=== PATIENT | female | born 1975 | race Caucasian/White ===

== ENCOUNTER 2020-11-21 17:38 | Emergency (ER) | payer OTHER ==
[~2020-11-21] VITALS: Ht 172.7 cm; Wt 93.0 kg
[2020-11-21] MEDS ORDERED: ONDANSETRON HCL 4MG/2ML INJ IV STA (18:59)
[2020-11-21] MEDS ORDERED: MORPHINE SULFATE 4 MG/ML CPJ (NOT FOR IM USE) IV STA (18:59)
[2020-11-21] MEDS ORDERED: SODIUM CHLORIDE 0.9% 1,000 ML IV ONE (19:00)
[2020-11-21 19:06] LABS: BASOPHILS % 0.6 % (0.0-2.0); EOSINOPHILS % 0.9 % (0.0-5.0); HEMATOCRIT. 28.1 % (36.0-48.0); HEMOGLOBIN. 8.1 g/dL (12.0-16.0); LYMPHOCYTES % 22.5 % (20.0-50.0); MEAN CORPUSCULAR VOLUME 58.6 fL (81.0-99.0); MEAN PLATELET VOLUME 8.6 fl (7.4-10.4); MONOCYTES % 3.6 % (2.0-8.0); NEUTROPHILS % 72.4 % (40.0-76.0); PLATELET 461 x1000/uL (130-400); RED BLOOD CELL COUNT 4.79 mill/uL (4.2-5.4); RED CELL DISTRIBUTION WIDTH 18.9 % (11.6-14.6)
[2020-11-21 19:13] LABS: CHLORIDE 108 mEq/L (98-107)
[2020-11-21 19:15] LABS: HCG SCREEN NEGATIVE; PROTHROMBIN TIME 10.8 sec (9.6-11.0)
[2020-11-21 19:31] LABS: PLATELET ESTIMATE INCREASED
[2020-11-21] MEDS ORDERED: DEXT 5%/0.9% NACL 500 ML IV ONE ×2 (20:30→23:30)
[2020-11-21] MEDS ORDERED: FENTANYL CITRATE/PF 50MCG/ML 2ML VIAL IV ONE (20:30)
[2020-11-21] MEDS ORDERED: CEFAZOLIN 1000MG PREMIX 50 ML IV ONE (22:30)
[2020-11-21] MEDS ORDERED: MORPHINE SULFATE 4 MG/ML CPJ (NOT FOR IM USE) IV ONE (23:30)
[2020-11-22 01:53] VITALS: BP 166/103
== END 2020-11-22 01:55 | disposition short-term general hospital (02) ==
LOC: ER 17:38 → CANBEDREQ 11-22 03:10
DX: K81.9 Cholecystitis, unspecified (principal); R11.2 Nausea with vomiting, unspecified
CPT/HCPCS: 36415; 74177; 76700; 80053; 83690; 84703; 85025; 85610; 96361; 96365; 96375; 96376; 99285; J0690; J2270; J2405; J3010; J7030; J7042

== ENCOUNTER 2021-11-10 19:43 | Emergency (ER) | payer SELFPAY ==
[~2021-11-10] VITALS: Ht 160 cm; Wt 117.5 kg
[2021-11-10] MEDS ORDERED: SODIUM CHLORIDE 0.9% 1,000 ML IV ONE (20:45)
[2021-11-10 20:52] LABS: BASOPHILS % 0.6 % (0.0-2.0); EOSINOPHILS % 1.7 % (0.0-5.0); HEMATOCRIT. 28.1 % (36.0-48.0); LYMPHOCYTES % 24.3 % (20.0-50.0); MEAN CORPUSCULAR HEMOGLOBIN 16.9 pg (28.0-32.0); MEAN CORPUSCULAR VOLUME 59.3 fL (81.0-99.0); MEAN PLATELET VOLUME 8.8 fl (7.4-10.4); MONOCYTES % 4.4 % (2.0-8.0); PLATELET 413 x1000/uL (130-400); RED BLOOD CELL COUNT 4.74 mill/uL (4.2-5.4); RED CELL DISTRIBUTION WIDTH 19.3 % (11.6-14.6)
[2021-11-10 20:58] LABS: CHLORIDE 106 mEq/L (98-107)
[2021-11-10 21:22] LABS: PLATELET ESTIMATE INCREASED
[2021-11-10] MEDS ORDERED: IOHEXOL-350 100 ML BOTTLE ONE (23:21)
[2021-11-11 01:05] VITALS: BP 141/77
== END 2021-11-11 01:05 | disposition home or self-care (01) ==
LOC: ER 19:43
DX: R06.02 Shortness of breath (principal); J45.909 Unspecified asthma, uncomplicated; Z90.49 Acquired absence of other specified parts of digestive tract; Z86.718 Personal history of other venous thrombosis and embolism; Z98.890 Other specified postprocedural states
CPT/HCPCS: 36415; 71275; 80053; 83880; 84484; 85025; 93005; 93970; 96360; 96361; 99285; J7030; Q9967